=== PATIENT | female | born 1955 | race Caucasian/White ===

== ENCOUNTER 2018-07-29 12:57 | Emergency (ER) | payer OTHER, SELFPAY ==
[2018-07-29 12:58] VITALS: BP 137/69; PULSE 78; RESP 16; TEMP 36.8; O2SAT 98; BMI 31.4
--- NOTE | 2018-07-29 13:35 | RAD_ITS ---
STUDY: X-RAY - LEFT FOOT CLINICAL: Female, 63 years old. Pain at the base of the fifth metatarsal. TECHNIQUE: 3 view(s) of the foot. COMPARISON: None. FINDINGS: There is a plantar calcaneal spur. Normal visualized subtalar, talonavicular, calcaneocuboid, tarsal and tarsometatarsal articulations. Normal metatarsi. Normal metatarsophalangeal joint of the great toe. Normal tibial and fibular sesamoid bones. Normal interphalangeal joint of the great toe. Normal phalanges of the great toe. Normal second through fifth metatarsophalangeal joints. Normal interphalangeal joints and phalanges of the lesser toes. Soft tissue swelling overlying the fifth metatarsal. RAD/Foot min 3 Views IMPRESSION: Small plantar spur. Soft tissue swelling overlying the fifth metatarsal. Electronically Signed: Aramis Rudd MD at 14:06 EST , Service support ,
--- NOTE | 2018-07-29 14:22 | ED.VISSUMM ---
- ER Visit Summary Date of Service: 07/29/18 Chief Complaint: Patient twisted her left foot, she has no other injury. She is complaining of lateral foot pain. Physical Examination: Her pain is on the left proximal fifth metatarsal region. She has no ankle pain. Neurovascularly intact Emergency Department Course and Treatment: Foot x-ray is negative for [place] or pseudo-[place] Toro fracture, will discharge with postop shoe. Discharge stable condition Impression: [Left foot strain] This note was generated with [employer] dictation software. It may contain incorrect words, spelling, and punctuation that were not noted in review of the chart prior to signing Patient twisted ED Disposition - Plan for ED Patient: Disposition: Home or Assisted Living Instructions: ED Sprain Foot Prescriptions: Naproxen [Naprosyn] 500 mg PO BID PRN #20 tab Referrals: Boston Edouard MD [Primary Care Provider] -
--- NOTE | 2018-07-29 14:25 | ED.DCSUM_ITS ---
- ER Visit Summary Date of Service: 07/29/18 Chief Complaint: Patient twisted her left foot, she has no other injury. She is complaining of lateral foot pain. Physical Examination: Her pain is on the left proximal fifth metatarsal region. She has no ankle pain. Neurovascularly intact Emergency Department Course and Treatment: Foot x-ray is negative for [place] or pseudo-[place]o fracture, will discharge with postop shoe. Discharge stable condition Impression: [Left foot strain] This note was generated with [employer] dictation software. It may contain incorrect words, spelling, and punctuation that were not noted in review of the chart prior to signing Patient twisted ED Disposition - Plan for ED Patient: Disposition: Home or Assisted Living Instructions: ED Sprain Foot Prescriptions: Naproxen [Naprosyn] 500 mg PO BID PRN #20 tab Referrals: Boston Edouard MD [Primary Care Provider] -
[2018-07-29 14:42] VITALS: BP 130/79; PULSE 78; RESP 16
== END 2018-07-29 14:43 | disposition home or self-care (01) ==
PROVIDERS: Emergency Provider Emergency Medicine; Family Provider Family Medicine; PCP Family Medicine
DX: S96.912A Strain of unspecified muscle and tendon at ankle and foot level, left foot, initial encounter (principal); X50.1XXA Overexertion from prolonged static or awkward postures, initial encounter; Y93.9 Activity, unspecified; Y92.9 Unspecified place or not applicable
CPT/HCPCS: 73630; 99283

== ENCOUNTER 2019-02-09 10:57 | Emergency (ER) | payer OTHER, SELFPAY ==
[2019-02-09 10:58] VITALS: BP 149/86; PULSE 84; RESP 18; TEMP 36.4; O2SAT 96; BMI 30.7
--- NOTE | 2019-02-09 11:31 | ED.VIS.GEN ---
History of Present Illness Chief Complaint: Back Informant: Patient Onset: Days - 2 Context: Onset with activity Timing: Continuous Current Severity: Moderate Maximum Severity: Moderate Narrative: Patient lifted a heavy water jug a few days ago has had low back pain since no radiation to legs. No bowel or bladder compromise. Pain is constant moderate worse with movement. No other injuries. Past Medical History - Allergies and Home Meds Allergies/Adverse Reactions: Allergies diphenhydramine HCl [From Benadryl] Adverse Reaction (Unknown, Verified 02/09/19 11:00) Chest tightness PAPER TAPE Allergy (Uncoded 02/09/19 11:00) Other Primary Care Physician: Boston Edouard MD [Primary Care Provider] - Past Medical History: - - Reviewed Surgical History: noncontributory Smoking Status: Former smoker - Family History Maternal Family History: Reports: No pertinent history Review of Systems General: Denies: Fever Gastrointestinal: Denies: Abdominal pain Genitourinary: Denies: Dysuria Skin: Denies: Wounds Neurological: Denies: Weakness, Parasthesia Hematologic: Denies: Easy bruising Allergy: Denies: Uticaria Physical Exam Vital Signs/Narrative: Vital Signs Temp Pulse Resp BP Pulse Ox 02/09/19 10:58 97.6 F L 84 18 149/86 H 96 General: Well nourished Eyes: Perrl ENT: Moist mucous membranes Cardiovascular: Regular rate, Regular rhythm Respiratory: No distress Abdomen: Soft, Nontender Back: - - There is spinal and paraspinal lumbar pain. Extremities: No edema. Negative for: Tenderness Neurological: - - There is normal plantarflexion and dorsiflexion of both feet and great toes bilaterally. 1+ patellar reflexes equal bilaterally Diagnostic/Tx/Re-eval - Medical Decision Making Patient appears in no acute distress she has a lumbar strain I will discharge her in stable condition with muscle relaxants and analgesics ED Disposition - Plan for ED Patient: Disposition: Home or Assisted Living Instructions: BACK PAIN (Acute or Chronic) Prescriptions: Oxycodone HCl/Acetaminophen [Percocet 5/325] 1 tab PO Q6H PRN PRN 3 Days #12 tab PRN Reason: Pain Prescription Printed Tizanidine HCl 2 mg PO BID PRN #15 tab PRN Reason: Muscle Spasm Prescription Printed Referrals: Boston Edouard MD [Primary Care Provider] - 3-5 Days
[2019-02-09 11:42] VITALS: BP 149/86; PULSE 84; RESP 18
== END 2019-02-09 11:44 | disposition home or self-care (01) ==
PROVIDERS: Emergency Provider Emergency Medicine; Family Provider Family Medicine; PCP Family Medicine
DX: S39.012A Strain of muscle, fascia and tendon of lower back, initial encounter (principal); X50.0XXA Overexertion from strenuous movement or load, initial encounter; Y93.89 Activity, other specified; Z87.891 Personal history of nicotine dependence
CPT/HCPCS: 99282

== ENCOUNTER 2021-11-13 20:19 | Emergency (ER) | payer MEDICARE, SELFPAY ==
[2021-11-13 20:19] VITALS: BP 120/89; PULSE 99; RESP 15; TEMP 36.8; O2SAT 98; BMI 31.1
--- NOTE | 2021-11-13 20:35 | ED.VIS.BACK ---
HPI History of Present Illness Chief Complaint: Back Narrative Narrative: Patient presents with low back pain after twisting the wrong way. She has no radicular symptoms no bowel or bladder compromise. No urinary retention symptoms. No saddle anesthesia. No recent fevers or chills. No urinary symptoms. PFSH PFSH Home Medications duloxetine 60 mg PO DAILY 02/04/15 [History Last Taken 02/04/15] metoprolol tartrate 50 mg PO BID #120 tablet 02/05/15 [Rx Last Taken Unknown] aspirin 81 mg PO DAILY 11/02/16 [History Last Taken Unknown] docusate sodium [Colace] 100 mg PO DAILY PRN PRN 11/02/16 [History Last Taken Unknown] gabapentin 100 mg PO TIDCM PRN 11/02/16 [History Last Taken Unknown] Omeprazole [Prilosec] 40 mg PO DAILY PRN 12/21/16 [History Last Taken Unknown] acetaminophen 325 mg PO Q4H PRN PRN 12/21/16 [History Last Taken Unknown] loratadine [Claritin] 10 mg PO DAILY PRN 12/21/16 [History Last Taken Unknown] naproxen 500 mg PO BID PRN #20 tab 07/29/18 [Rx Last Taken Unknown] tizanidine 2 mg PO BID PRN #15 tab 02/09/19 [Rx Last Taken Unknown] hydrocodone-acetaminophen 1 tab PO QHS PRN 3 Days #7 tab 11/13/21 [Rx Last Taken Unknown] tizanidine 2 mg PO Q8H PRN #10 cap 11/13/21 [Rx Last Taken Unknown] Allergy/AdvReac Type Severity Reaction Status Date / Time diphenhydramine HCl AdvReac Unknown Chest Verified 11/13/21 20:19 [From Benadryl] tightness PAPER TAPE Allergy Other Uncoded 11/13/21 20:19 Social History Smoking Status: Former smoker ROS ROS ED ROS Narrative Past medical history: Reviewed Medications: Reviewed Social history: Noncontributory Review of systems: All systems negative except as indicated Neck: No neck pain Cardiovascular: No chest pain Respiratory: No shortness of breath or cough Gastrointestinal: No abdominal pain, nausea vomiting or diarrhea Genitourinary: No dysuria Musculoskeletal: Back pain as in HPI Skin: No rash Neurological: No memory loss, confusion or any focal weakness Psych: No recent behavioral changes Hematologic: No easy bleeding or easy bruising EXAM Physical Exam Narrative Exam Narrative: Vitals reviewed General: Patient appears in some discomfort HEENT: Moist mucous membranes Neck: Nontender Cardiovascular normal heart rate Respiratory: No respiratory difficulty speaking in full sentences Abdomen: Soft and nontender, there is no suprapubic mass or pain Back: There is some tenderness over the lumbar region, pain is spinal and paraspinal both. Extremities: Moves all extremities without joint pain or signs of trauma Neurological: There is normal plantar flexion and dorsiflexion of both feet and great toes. Patellar and Achilles reflexes are normal. Normal strength and sensation. Negative straight leg test. Skin: No rash Psychiatric: Slightly anxious. Const Vital Signs: 11/13/21 20:19 Temperature 98.3 F Temperature Source Temporal Pulse Rate 99 Respiratory Rate 15 Blood Pressure 120/89 H Blood Pressure Mean 99 Pulse Ox 98 Oxygen Delivery Method Room Air MDM MDM MDM Narrative Medical decision making narrative: Patient has a normal neurological exam she appears well, I will treat with analgesia and muscle relaxants Discharge Plan Triage Chief Complaint: Back ED Provider: Naga Gibson Dx/Rx/DC Orders Clinical Impression: Back pain, Lumbar strain Instructions: Back Basics: A Healthy Spine, Back Exercises: Abdominal Lift Prescriptions: New tizanidine 2 mg capsule 2 mg PO Q8H PRN (Reason: muscle spasticity) Qty: 10 RF: 0 hydrocodone-acetaminophen 5-325 mg tablet 1 tab PO QHS PRN (Reason: pain) 3 Days Qty: 7 RF: 0 No Action duloxetine 60 MG capsule,delayed release(DR/EC) 60 mg PO DAILY RF: 0 metoprolol tartrate 25 MG tablet 50 mg PO BID Qty: 120 RF: 0 docusate sodium [DOK] 100 MG capsule 100 mg PO DAILY PRN PRN (Reason: Constipation) RF: 0 aspirin 81 MG tablet,chewable 81 mg PO DAILY RF: 0 gabapentin 100 MG capsule 100 mg PO TIDCM PRN (Reason: Pain) RF: 0 acetaminophen 325 MG tablet 325 mg PO Q4H PRN PRN (Reason: Pain) RF: 0 loratadine [Allergy Relief (loratadine)] 10 MG tablet 10 mg PO DAILY PRN (Reason: Allergies) RF: 0 Omeprazole [Prilosec] 40 MG capsule 40 mg PO DAILY PRN (Reason: gerd) RF: 0 naproxen 500 MG tablet 500 mg PO BID PRN Qty: 20 RF: 0 tizanidine 2 MG tablet 2 mg PO BID PRN (Reason: Muscle Spasm) Qty: 15 RF: 0 Primary Care Provider: Boston Edouard Referrals: Boston Edouard MD [Primary Care Provider] - 2 Days Disposition Disposition: Home, Self Care
[2021-11-13] MEDS: cycloBENZAPRine HCl 10 MG Tablet PO (20:38)
[2021-11-13] MEDS: HYDROcodone Bitartrate/Apap 5/325 Tablet PO (20:38)
== END 2021-11-13 20:49 | disposition home or self-care (01) ==
LOC: ED 20:47
PROVIDERS: Emergency Provider Emergency Medicine; PCP Family Medicine; Visit Provider Emergency Medicine
DX: S39.012A Strain of muscle, fascia and tendon of lower back, initial encounter (principal); Z87.891 Personal history of nicotine dependence; X58.XXXA Exposure to other specified factors, initial encounter
CPT/HCPCS: 99283

== ENCOUNTER 2024-04-03 09:11 | Emergency (ER) | payer MEDICARE, SELFPAY ==
[2024-04-03 09:11] VITALS: BP 163/104; PULSE 98; RESP 18; TEMP 36.2; O2SAT 99; BMI 30.7
--- NOTE | 2024-04-03 10:09 | EX.ED.UPPERE ---
HPI History of Present Illness HPI Narrative: Patient presents with a right wrist injury that occurred today. Patient states she slipped on a carpet floor and fell onto her right wrist. Patient denies any head injury or loss of consciousness. Patient describes her pain as sharp, aching, and throbbing. Patient states her pain is worse with any movement. Patient states it is better with rest. Patient denies any paresthesias or weakness. Patient admits to some nausea but denies any vomiting. Patient denies any other injuries. Chief Complaint: Upper Extremity Injury Informant: patient Occured/Mechanism Mechanism/Context: Yes fall Onset/Context/Timing Onset: Today Context: Sudden Onset Timing: Continuous Quality of Pain: Sharp, Aching and Throbbing Location: Right wrist Worsened by: Movement Relieved by: Rest Associated Symptoms Associated Symptoms: Negative for Parasthesia, Weakness or Loss of Funtion [facility] Medical History (Updated 04/03/24 @ 11:[address] Alfie Rasmussen, DO) Diabetes mellitus Hypertension Depression HX: breast cancer Home Medications ?Medication ?Instructions ?Recorded ?Last Taken ?Type duloxetine 60 mg capsule,delayed 60 mg PO DAILY 02/04/15 02/04/15 History release metoprolol tartrate 25 mg tablet 50 mg (2 x 25 mg) PO BID ##120 02/05/15 Unknown Rx aspirin 81 mg chewable tablet 81 mg PO DAILY 11/02/16 Unknown History docusate sodium 100 mg capsule 100 mg PO DAILY PRN PRN 11/02/16 Unknown History (DOK) Constipation gabapentin 100 mg capsule 100 mg PO TIDCM PRN Pain 11/02/16 Unknown History Omeprazole [Prilosec] 40 mg PO DAILY PRN gerd 12/21/16 Unknown History acetaminophen 325 mg tablet 325 mg PO Q4H PRN PRN Pain 12/21/16 Unknown History loratadine 10 mg tablet (Allergy 10 mg PO DAILY PRN Allergies 12/21/16 Unknown History Relief (loratadine)) naproxen 500 mg tablet 500 mg PO BID PRN #20 tabs 07/29/18 Unknown Rx tizanidine 2 mg tablet 2 mg PO BID PRN Muscle Spasm #15 02/09/19 Unknown Rx tabs tizanidine 2 mg capsule 2 mg PO Q8H PRN muscle spasticity 11/13/21 Unknown Rx #10 caps hydrocodone-acetaminophen 5-325mg 1 tab PO Q6H PRN PRN pain 3 days 04/03/24 Unknown Rx 5mg-325mg #10 tabs Allergy/AdvReac Type Severity Reaction Status Date / Time adhesive tape (paper tape) Allergy NEEDS Verified 04/03/24 09:11 FOLLOW-UP diphenhydramine HCl (From AdvReac Unknown Chest Verified 04/03/24 09:11 Benadryl) tightness Surgical History (Updated 04/03/24 @ 10:[address] Alfie Rasmussen, ) Hx of bilateral mastectomy Social History Smoking Status: Former smoker ROS ROS ED Constitutional Constitutional ED: Denies chills or fever(s) Eyes Eyes: Denies blurry vision or change in vision ENT ENT ED: Denies rhinorrhea or sore throat Cardiovascular Cardiovascular: Denies chest pain or palpitations Respiratory/Chest Respiratory/Chest: Denies cough or dyspnea Gastrointestinal Gastrointestinal: Reports nausea; Denies vomiting Genitourinary Genitourinary ED: Denies dysuria or hematuria Musculoskeletal Musculoskeletal: Denies back pain or neck pain Integumentary Denies abscess or rash Neurologic Neurologic: Denies headache(s) or weakness Allergic/Immunologic Allergic/Immunologic ED: Denies mouth swelling or urticaria EXAM Physical Exam Const Vital Signs: 04/03/24 09:11 Temperature 97.2 F L Temperature Source Temporal Pulse Rate 98 Respiratory Rate 18 Blood Pressure 163/104 H Blood Pressure Mean 123 Pulse Ox 99 Oxygen Delivery Method Room Air Positive well nourished and well developed General Appearance ED: well developed and NAD HEENT Reports moist mucous membranes normocephalic and atraumatic Neck full ROM and supple Extremity Extremity Narrative: There is tenderness, edema, and ecchymosis over the right wrist. There is a deformity of the distal radius. Radial pulses are bilateral. Range of motion was limited in all motions of the right wrist secondary to pain. Strength is 5/5 in the radial, median, and ulnar areas. Sensation was intact to light touch in the radial, median, and ulnar areas. Neuro oriented x3, CN's II-XII intact bilaterally, moves all extremities, no focal motor deficits and no sensory deficits noted Sensorium / Orientation: alert Motor Exam: strength 5/5 throughout Psych mental status grossly normal MDM MDM MDM Narrative Medical decision making narrative: Differential diagnosis includes fracture, dislocation, sprain, and contusion. X-rays of the right wrist will be obtained to assess for fracture and dislocation. Radiography Diagnostic Testing: X-rays of the right wrist were obtained. There are 3 views. On my independent interpretation, there is a comminuted fracture of the distal radius. There is also a nondisplaced fracture of the ulnar styloid. There is minimal displacement and angulation. Radiologist also interpreted the x-rays and agrees. Treatment and Re-Evaluation Narrative: Patient was given morphine and Zofran. Patient was advised of her findings. Patient was given a dose of Versed here. Finger traps were used for traction. Patient was placed in a well-padded custom made short arm AP splint using 3 inch Ortho-Glass. Neurovascular exam was intact after the procedure. Patient tolerated procedure well. Patient was given a prescription for a short course of [place]. Patient was given a referral for orthopedics. Patient was instructed to follow-up with her primary care physician in 5 to 7 days. Patient understood and was agreeable with the plan. All questions were answered. Discharge Plan Triage Chief Complaint: Upper Extremity Injury ED Provider: Alfie Rasmussen Dx/Rx/DC Orders Clinical Impression: Closed fracture of right distal radius and ulna, Fall Instructions: ED Fracture, Upper Extremity Prescriptions: Changed hydrocodone-acetaminophen 5-325 mg tablet 1 tab PO Q6H PRN PRN (Reason: pain) 3 Days Qty: 10 0RF No Action duloxetine 60 MG capsule,delayed release(DR/EC) 60 mg PO DAILY Patient Comments: Antidepressant last dose was 02/05/15 metoprolol tartrate 25 MG tablet 50 mg PO BID Qty: 120 0RF Patient Comments: blood pressure had today 02/05/15 docusate sodium [DOK] 100 MG capsule 100 mg PO DAILY PRN PRN (Reason: Constipation) aspirin 81 MG tablet,chewable 81 mg PO DAILY gabapentin 100 MG capsule 100 mg PO TIDCM PRN (Reason: Pain) acetaminophen 325 MG tablet 325 mg PO Q4H PRN PRN (Reason: Pain) loratadine [Allergy Relief (loratadine)] 10 MG tablet 10 mg PO DAILY PRN (Reason: Allergies) Omeprazole [Prilosec] 40 MG capsule 40 mg PO DAILY PRN (Reason: gerd) naproxen 500 MG tablet 500 mg PO BID PRN Qty: 20 0RF tizanidine 2 MG tablet 2 mg PO BID PRN (Reason: Muscle Spasm) Qty: 15 0RF tizanidine 2 mg capsule 2 mg PO Q8H PRN (Reason: muscle spasticity) Qty: 10 0RF Stand Alone Forms: [facility] Referral Primary Care Provider: Boston Edouard Referrals: Boston Edouard MD [Primary Care Provider] - 5-7 Days Chaitanya Espinal MD [Med Staff - Active Staff] - 3-5 Days Print Language: Armenian Disposition Disposition: Home, Self Care
[2024-04-03] MEDS: Morphine 4 MG/ML Syringe IV (10:27)
[2024-04-03] MEDS: Ondansetron 4 MG/2 ML Vial IV (10:29)
--- NOTE | 2024-04-03 10:40 | RAD_ITS ---
HISTORY: Injury/Pain. TECHNIQUE: XR Wrist Min 3 Views. COMPARISON: None. FINDINGS: BONES : Impacted intra-articular fracture of the distal radius with mild posterior displacement. Nondisplaced ulnar styloid fracture. Small fragment adjacent to the trapezium JOINTS: No dislocation. SOFT TISSUES: Surrounding soft tissue swelling. RAD/Wrist min 3 Views IMPRESSION: Comminuted fracture of the distal radius. Nondisplaced ulnar styloid fracture. Soft tissue swelling of the right wrist. Small fragment adjacent to the trapezium which may represent an avulsion fracture from the base of the thumb or trapezium. Consider follow-up CT. Electronically Signed: Ayse Valenzuela MD at 11:15 EDT ,
[2024-04-03] MEDS: Midazolam 5 MG/ML Syringe IV (11:06)
[2024-04-03 11:12] VITALS: BP 146/80; PULSE 97; RESP 18; O2SAT 78
[2024-04-03 11:13] VITALS: BP 139/73; PULSE 95; RESP 14; O2SAT 100
[2024-04-03 11:18] VITALS: BP 135/71; PULSE 99; RESP 14; O2SAT 98
[2024-04-03 11:24] VITALS: BP 140/85; PULSE 98; RESP 14; O2SAT 95
[2024-04-03 12:00] VITALS: BP 133/77; PULSE 95; RESP 18; TEMP 36.2; O2SAT 92
== END 2024-04-03 12:02 | disposition home or self-care (01) ==
PROVIDERS: Emergency Provider Emergency Medicine; PCP Family Medicine; Visit Provider Emergency Medicine
DX: S52.501A Unspecified fracture of the lower end of right radius, initial encounter for closed fracture (principal); E11.9 Type 2 diabetes mellitus without complications; S52.601A Unspecified fracture of lower end of right ulna, initial encounter for closed fracture; Z87.891 Personal history of nicotine dependence; W19.XXXA Unspecified fall, initial encounter
CPT/HCPCS: 29125; 73110; 96374; 96375; 96376; 99283; A4216; J2405

== ENCOUNTER 2024-07-27 13:34 | Emergency (ER) | payer MEDICARE, SELFPAY ==
[2024-07-27 13:35] VITALS: BP 120/83; PULSE 109; RESP 16; TEMP 36.3; O2SAT 97; BMI 30.7
--- NOTE | 2024-07-27 13:46 | RAD_ITS ---
PROCEDURE: CHEST 1 VIEW (PORTABLE) REASON FOR EXAM: Chest pain. TECHNIQUE: Frontal view of the chest. COMPARISON: None. FINDINGS: The cardiac and mediastinal contours are normal. No acute consolidation, pleural effusion or pneumothorax. The visualized osseous structures demonstrate no acute abnormality. Multiple surgical clips overlies bilateral chest gutierrez. RAD/Chest 1 View (Portable) IMPRESSION: No acute consolidation, pleural effusion or pneumothorax. Reading Location: [id number]
--- NOTE | 2024-07-27 13:46 | EKG12_ITS ---
Test Reason : CP Blood Pressure : */* mmHG Vent. Rate : 100 BPM Atrial Rate : 100 BPM P-R Int : 140 ms QRS Dur : 72 ms QT Int : 334 ms P-R-T Axes : 42 -23 71 degrees QTcB Int : 430 ms Normal sinus rhythm Inferior infarct , age undetermined Abnormal ECG Confirmed by Timoteo Chicas ([id number]), brands editor BLAISE LEIJA ([id number]) on 07/28/2024 10:02:56 AM Referred By: BB/ Confirmed By: Timoteo Chicas
[2024-07-27 14:15] LABS: Absolute Lymphocyte Count 4.04 X10^3/uL (0.83-4.51); Absolute Neutrophil Count 7.2 X10^3/uL (2.0-7.7); Basophil# 0.07 X10^3/uL; Basophil% 0.6 % (0-1); Eosinophil# 0.12 X10^3/uL; Hematocrit 39.8 % (37-47); Hemoglobin 13.1 g/dL (12.0-15.0); Lymphocyte # 4.04 X10^3/ul (0.83-4.51); Lymphocyte % 32.3 % (19-41); Mean Corp Hgb Conc 32.9 g/dL (32-36); Mean Corpuscular Hgb 29.2 pg (27.0-32.0); Mean Corpuscular Volume 88.6 fL (81-99); Mean Platelet Vol. 10.1 fl (6.2-12.0); NRBC Flagged by Analyzer 0 % (0-5); Neutrophil # 7.21 X10^3/uL (2.7-7.7); Neutrophil % 57.7 % (47-70); Platelet Count 319 K/mm3 (150-450); RBC Distribution Width CV 13.5 % (11.6-14.6); RBC Distribution Width SD 44.1 fl (35.1-43.9); Red Blood Count 4.49 M/mm3 (4.2-5.4); White Blood Count 12.5 K/mm3 (4.4-11.0)
[2024-07-27 14:32] LABS: Anion Gap 8 (5-15); BUN 25 mg/dL (7-18); BUN/Creat Ratio 23.8 RATIO (10-20); Calcium,Total 9.7 mg/dL (8.5-10.1); Chloride 102 mmol/L (98-107); Creatinine, Serum 1.05 mg/dL (0.55-1.02); EST Glomerular Filtration Rate 55 mL/min (>60); Est Glom Filt Rate - Afr Amer 67 mL/min (>60); Estimated Creatinine Clearance 52.86 ml/min; Glucose 112 mg/dL (74-106); Potassium 3.8 mmol/L (3.5-5.1); Sodium Level 138 mmol/L (136-145); Troponin-I HS (w/2H Reflex) 13 pg/mL (3.0-54.0)
[2024-07-27 14:34] VITALS: BP 116/69; PULSE 97; O2SAT 95
--- NOTE | 2024-07-27 14:59 | CT_ITS ---
PROCEDURE: CT scan of the head without contrast. CLINICAL INDICATION: REASON FOR EXAM: Headaches and dizziness. TECHNIQUE: Helical imaging of CT head was performed without IV contrast. One or more of the following dose reduction techniques were used: automated exposure control, adjustment of the mA and/or kV according to patient size, use of iterative reconstruction technique. IV CONTRAST: COMPARISON: None. FINDINGS: BRAIN PARENCHYMA: No evidence for acute hemorrhage or large territory infarct. EXTRA-AXIAL SPACES: No acute extra-axial fluid collection identified. Basal cisterns are patent. MIDLINE SHIFT: None. VENTRICLES: No evidence of hydrocephalus. SCALP SOFT TISSUES: No significant abnormality. CALVARIUM: No acute process. VISUALIZED PARANASAL SINUSES: No air-fluid levels. MASTOID AIR CELLS: Grossly clear. CT/Brain/Head without Contrast IMPRESSION: One or more dose reduction techniques were used (e.g., Automated exposure contr ol, adjustment of the mA and/or kV according to patient size, use of iterative reconstruction technique). Reading Location: [place] [id number]
[2024-07-27 15:00] VITALS: BP 129/87; PULSE 78; RESP 16; O2SAT 98
--- NOTE | 2024-07-27 15:00 | EX.ED.DYSGE1 ---
HPI History of Present Illness Chief Complaint: Chest Pain Detail of Chief Complaint: Not feeling well Informant: patient Narrative Narrative: Patient presents the emergency department complaint of not feeling well for the last 6 days. Patient states that she had a broken wrist last year in March and she was in a splint. She started having pain to her right hand medial and lateral aspect and saw her orthopedic surgeon who 6 days ago started her on prednisone. The following day she woke up and had what she described as vertigo-like symptoms and so she took some meclizine and went back to bed after she vomited twice that morning and then when she woke up again she states that her symptoms resolved. The following day she noted that her blood pressures were elevated and her heart rate was fast. She is been feeling lightheaded. She describes some discomfort between her shoulder blades that radiates up her neck to the top of her head. She denies falls or head injuries. She is not anticoagulated. She has since discontinued her meloxicam and steroids. Patient denies any chest pain or exertional dyspnea. She has no heart history [facility] Medical History (Updated 07/27/24 @ 16:[address] Elizabeth Patten, DO) Diabetes mellitus Hypertension Depression HX: breast cancer Home Medications ?Medication ?Instructions ?Recorded ?Last Taken ?Type duloxetine 60 mg capsule,delayed 60 mg PO DAILY 02/04/15 02/04/15 History release metoprolol tartrate 25 mg tablet 50 mg (2 x 25 mg) PO BID ##120 02/05/15 Unknown Rx aspirin 81 mg chewable tablet 81 mg PO DAILY 11/02/16 Unknown History docusate sodium 100 mg capsule 100 mg PO DAILY PRN PRN 11/02/16 Unknown History (DOK) Constipation gabapentin 100 mg capsule 100 mg PO TIDCM PRN Pain 11/02/16 Unknown History Omeprazole [Prilosec] 40 mg PO DAILY PRN gerd 12/21/16 Unknown History acetaminophen 325 mg tablet 325 mg PO Q4H PRN PRN Pain 12/21/16 Unknown History loratadine 10 mg tablet (Allergy 10 mg PO DAILY PRN Allergies 12/21/16 Unknown History Relief (loratadine)) naproxen 500 mg tablet 500 mg PO BID PRN #20 tabs 07/29/18 Unknown Rx tizanidine 2 mg tablet 2 mg PO BID PRN Muscle Spasm #15 02/09/19 Unknown Rx tabs tizanidine 2 mg capsule 2 mg PO Q8H PRN muscle spasticity 11/13/21 Unknown Rx #10 caps hydrocodone-acetaminophen 5-325mg 1 tab PO Q6H PRN PRN pain 3 days 04/03/24 Unknown Rx 5mg-325mg #10 tabs Allergy/AdvReac Type Severity Reaction Status Date / Time adhesive tape (paper tape) Allergy NEEDS Verified 04/03/24 09:11 FOLLOW-UP diphenhydramine HCl (From AdvReac Unknown Chest Verified 04/03/24 09:11 Benadryl) tightness Surgical History (Updated 04/03/24 @ 10:[address] Alfie Rasmussen, ) Hx of bilateral mastectomy Social History Smoking Status: Former smoker ROS ROS ED Review of Systems ROS Unobtainable: other Constitutional Constitutional ED: Reports lethargy; Denies chills, fever(s), sweats or weight loss Eyes Eyes: Denies blurry vision, change in vision or diplopia ENT ENT ED: Denies rhinorrhea or sore throat Cardiovascular Cardiovascular: Denies chest pain, orthopnea or racing heartbeat Respiratory/Chest Respiratory/Chest: Denies cough, dyspnea, dyspnea on exertion, orthopnea or sputum Gastrointestinal Gastrointestinal: Denies abdominal pain, diarrhea, nausea or vomiting Genitourinary Genitourinary ED: Denies dysuria, hematuria or urinary frequency Musculoskeletal Musculoskeletal: Reports back pain and neck pain; Denies arthralgias or myalgias Integumentary Denies abscess, Abrasions or rash Neurologic Neurologic: Reports headache(s) and other Details: Lightheadedness ; Denies weakness Psychiatric Psychiatric: Denies anxiety, depression or suicidal thoughts Endocrine Endocrinology: Denies polydipsia, polyphagia or polyuria Hematologic/Lymphatic Hematologic/Lymphatic: Denies easy bleeding, easy bruising or lymphadenopathy Allergic/Immunologic Allergic/Immunologic ED: Denies mouth swelling, tongue swelling or urticaria EXAM Physical Exam Const Vital Signs: 07/27/24 13:35 07/27/24 14:07 07/27/24 14:34 Temperature 97.3 F L Temperature Source Temporal Pulse Rate 109 H 97 Respiratory Rate 16 Blood Pressure 120/83 H 116/69 Blood Pressure Mean 95 84 Pulse Ox 97 95 Oxygen Delivery Method Room Air Room Air 07/27/24 15:00 07/27/24 16:00 Temperature Temperature Source Pulse Rate 78 91 Respiratory Rate 16 Blood Pressure 129/87 H 101/78 Blood Pressure Mean 101 85 Pulse Ox 98 97 Oxygen Delivery Method Room Air Positive well nourished and well developed General Appearance ED: well developed and NAD HEENT Reports TM's clear and moist mucous membranes normocephalic and atraumatic; Negative for trauma or tenderness Tympanic Membrane ED: Yes TM's clear Eyes PERRL and EOMs intact bilaterally General Eye ED: Negative for pale conjunctiva or scleral icterus Neck no lymphadenopathy, supple and no JVD General: Negative for tenderness Chest Wall inspection of chest normal and palpation of chest normal Chest: Negative for tenderness Resp normal respiratory effort and clear to auscultation bilaterally Effort and Inspection: Negative for respiratory distress or pain with movement Auscultation: Negative for rhonchi, wheezes or diminished lung sounds Cardio regular rate, regular rhythm, S1 normal heart sound, S2 normal heart sound and no murmurs Peripheral Pulses: pulses 2+ throughout GI normal to inspection, nondistended, normoactive bowel sounds, soft to palpation, non-tender, non-distended and no masses Back/Spine no CVA tenderness and no thoracic nor lumbar tenderness Extremity normal to inspection General Extremety ED: Negative for edema General Extremity: Negative for edema Neuro oriented x3, CN's II-XII intact bilaterally, no sensory deficits noted and gait normal Sensorium / Orientation: awake, alert, oriented to person, oriented to place and oriented to time Motor Exam: strength 5/5 throughout and strength abnormal Psych mental status grossly normal Skin no rashes or lesions noted and no wounds MDM MDM MDM Narrative Medical decision making narrative: Patient presents the emergency department with a complaint of lightheadedness and some discomfort in her upper back. She had been on steroids recently for some discomfort to her right wrist. Patient also complains of headache that she rates about a 7 out of 10. Clinically she looks well. Because of the vertigo and dizziness and headache will obtain a CT scan of the brain without contrast which was unremarkable. CBC with differential count of 12.5 with hemoglobin 13.1 and platelet count of 319. Chemistries unremarkable. D-dimer was less than 0.27. Troponin was normal at 13. EKG obtained arrival showed a sinus rhythm with rate of 100 bpm with old inferior infarct noted. At this point patient will be discharged to home. Clinically again she looks well. She states she cannot take ibuprofen for headache or Vicodin or Percocet and really there is not anything significant that she can take be on Tylenol. Advised to push fluids. It is also possible she may have a viral syndrome. Recommended follow-up with her primary care physician 3 to 5 days. Lab Data Attestation: I reviewed the patient's lab results. Labs: Laboratory Results - last 24 hr 07/27/24 14:05 WBC 12.5 H RBC 4.49 Hgb 13.1 Hct 39.8 MCV 88.6 MCH 29.2 MCHC 32.9 RDW Std Deviation 44.1 H RDW Coeff of Benito 13.5 Plt Count 319 MPV 10.1 Immature Gran % (Auto) 0.400 Neut % (Auto) 57.7 Lymph % (Auto) 32.3 Antelope % (Auto) 8.0 Eos % (Auto) 1.0 Baso % (Auto) 0.6 Absolute Neuts (auto) 7.2 Absolute Lymphs (auto) 4.04 Nucleated RBC % 0 D-Dimer Quant (PE/DVT) < 0.27 L Sodium 138 Potassium 3.8 Chloride 102 Carbon Dioxide 27.0 Anion Gap 8 BUN 25 H Creatinine 1.05 H Estim Creat Clear Calc 52.86 Est GFR (MDRD) Af Amer 67 Est GFR (MDRD) Non-Af 55 L BUN/Creatinine Ratio 23.8 H Glucose 112 H Calcium 9.7 Troponin I High Sens 13 Radiography Diagnostic Testing: Clinical Impression(s) from Imaging Studies Chest X-Ray 07/27/24 13:46 IMPRESSION: No acute consolidation, pleural effusion or pneumothorax. Reading Location: [facility] Brain CT 07/27/24 14:59 IMPRESSION: One or more dose reduction techniques were used (e.g., Automated exposure control, adjustment of the mA and/or kV according to patient size, use of iterative reconstruction technique). [facility] obtained interpreted by myself as no evidence of infiltrate or pneumothorax or acute disease process. Radiology in agreement. EKG Initial EKG: Attestation: I personally reviewed and interpreted this EKG as follows: Comments: Sinus rhythm with ventricular rate of 100 bpm with old inferior infarct Discharge Plan Triage Chief Complaint: Chest Pain ED Provider: Elizabeth Patten Dx/Rx/DC Orders Clinical Impression: Headache, Dizziness Instructions: ED Dizziness, Uncertain Cause, ED Headache, Tension, ED Vertigo, Unspecified Prescriptions: No Action duloxetine 60 MG capsule,delayed release(DR/EC) 60 mg PO DAILY Patient Comments: Antidepressant last dose was 02/05/15 metoprolol tartrate 25 MG tablet 50 mg PO BID Qty: 120 0RF Patient Comments: blood pressure had today 02/05/15 docusate sodium [DOK] 100 MG capsule 100 mg PO DAILY PRN PRN (Reason: Constipation) aspirin 81 MG tablet,chewable 81 mg PO DAILY gabapentin 100 MG capsule 100 mg PO TIDCM PRN (Reason: Pain) acetaminophen 325 MG tablet 325 mg PO Q4H PRN PRN (Reason: Pain) loratadine [Allergy Relief (loratadine)] 10 MG tablet 10 mg PO DAILY PRN (Reason: Allergies) Omeprazole [Prilosec] 40 MG capsule 40 mg PO DAILY PRN (Reason: gerd) naproxen 500 MG tablet 500 mg PO BID PRN Qty: 20 0RF tizanidine 2 MG tablet 2 mg PO BID PRN (Reason: Muscle Spasm) Qty: 15 0RF tizanidine 2 mg capsule 2 mg PO Q8H PRN (Reason: muscle spasticity) Qty: 10 0RF hydrocodone-acetaminophen 5-325 mg tablet 1 tab PO Q6H PRN PRN (Reason: pain) 3 Days Qty: 10 0RF Primary Care Provider: Boston Edouard Referrals: Boston Edouard MD [Primary Care Provider] - 3-5 Days Print Language: Citizen Of [place] Disposition Disposition: Home, Self Care
[2024-07-27 15:52] LABS: D-Dimer Quantitative (DVT/PE) < 0.27 FEU/ug/m (0.27-0.49)
[2024-07-27 16:00] VITALS: BP 101/78; PULSE 91; O2SAT 97
[2024-07-27 16:11] LABS: Reflex Troponin-HS? (from REC) Y
[2024-07-27 16:44] LABS: Troponin-I HS 14 pg/mL (3.0-54.0)
[2024-07-27 16:57] VITALS: BP 144/91; PULSE 87; RESP 16; O2SAT 99
== END 2024-07-27 16:58 | disposition home or self-care (01) ==
PROVIDERS: Emergency Provider Emergency Medicine; PCP Family Medicine; Visit Provider Emergency Medicine
DX: R51.9 Headache, unspecified (principal); E11.9 Type 2 diabetes mellitus without complications; R42 Dizziness and giddiness; Z87.891 Personal history of nicotine dependence
CPT/HCPCS: 70450; 71045; 80048; 84484; 85025; 85379; 93005; 99284; A4216

== ENCOUNTER → 2024-08-26 | Outpatient (CLI) | payer MEDICARE, SELFPAY ==
--- NOTE | 2024-08-26 12:06 | NEURO_ITS ---
NCS and/or EMG Patient Report Ordering Doctor: Gail Hobbs DATE OF SERVICE: 08/26/24 Presents with complaints of intermittent numbness and tingling in the right hand. She reports a wrist fracture in March 2024 which was treated nonoperatively. Electrodiagnostic findings: Right median motor nerve demonstrates normal distal latency, amplitude and conduction velocity. Right ulnar motor nerve demonstrates normal distal latency, amplitude and conduction velocity. Normal right median and right ulnar F?waves. Normal right median sensory latency at the wrist and palm. Normal ulnar and radial sensory responses. Needle EMG testing was performed in the right upper limb. All muscles tested, including r adial innervated muscles, showed no evidence of denervation with normal motor unit action potentials. Electrodiagnostic impression: This is a normal electrodiagnostic study of the right upper limb. There is no electrodiagnostic evidence for peripheral neuropathy, including carpal tunnel syndrome. There is no electrodiagnostic evidence for cervical radiculopathy. Multi Select Codes Neurology Neurology Interp Codes: 01699-02 Musc test done w/n test comp (interp) and 77479-04 Nrv cndj test 7-8 studies (interp)
== END | disposition home or self-care (01) ==
LOC: PSN 09:46
PROVIDERS: PCP Family Medicine; Referring Provider Physician Assistant; Visit Provider Physician Assistant
DX: R20.2 Paresthesia of skin (principal)
CPT/HCPCS: 95886; 95910